=== PATIENT | female | born 1945 | race African-American/Black ===

== ENCOUNTER 2021-11-15 16:27 | Emergency (ER) | payer MEDICARE, SELFPAY ==
--- NOTE | ~2021-11-15 | CT_ITS ---
EXAMINATION: CT cervical spine wo con DATE: 11/15/2021 18:37 INDICATION: trauma TECHNIQUE: Computed tomography (CT) of the cervical spine was performed with intravenous contrast. Au tomated exposure control and iterative reconstruction technique were employed. The dose-length produc t was 127.95 mGy-cm. COMPARISON: None FINDINGS: Vertebral Body Alignment: Intact. Craniocervical and atlantoaxial alignment: Mild degenerative change. Alignment intact. Osseous structures/fracture: No evidence of a lytic or blastic process in the visualized spine. No e vidence of acute fracture. Cervical soft tissues: The paraspinal soft tissues planes are maintained. Degenerative changes: No significant degenerative changes. IMPRESSION: No acute fracture or traumatic malalignment in the cervical spine. Reviewed, dictated and finalized at location K.
--- NOTE | ~2021-11-15 | CT_ITS ---
EXAMINATION: CT brain wo con DATE: 11/15/2021 18:37 INDICATION: trauma . TECHNIQUE: Computed tomography (CT) of the head was performed without intravenous contrast. The mA wa s adjusted according to patient size. Iterative reconstruction technique was employed. The dose-lengt h product was 605.33 mGy-cm. COMPARISON: None FINDINGS: No acute intracranial hemorrhage or extra-axial fluid collection. No hydrocephalus, mass, or herniation. No acute ischemic infarct. Unremarkable dural venous sinus attenuation. No acute osseous abnormality. The aerated spaces are clear. IMPRESSION: No acute intracranial process. Reviewed, dictated and finalized at location K.
[2021-11-15 16:36] VITALS: BP 116/63; PULSE 65; RESP 20; TEMP 37.1; O2SAT 100
--- NOTE | 2021-11-15 19:11 | ED.HEATRA ---
HPI - Head Injury General Chief complaint: Head Injury Stated complaint: head trauma Time Seen by Provider: 11/15/21 17:26 History of Present Illness HPI Narrative: Patient is a 76-year-old female who presents the ER for evaluation of head injury. Yesterday she was getting an elevator and the sensing mechanism did not work and it struck her in the head. She saw stars. She did not lose consciousness. She is not on blood thinners. She has had some mild dizziness today that will occasionally blur her vision. Worse with exertion. Related Data Allergies Allergy/AdvReac Type Severity Reaction Status Date / Time morphine AdvReac Unknown Verified 02/13/14 15:00 Contrast Media Allergy Unknown Uncoded 02/13/14 15:00 Review of Systems Eyes: Eyes: Reports change in vision and Denies photophobia Gastrointestinal: Gastrointestinal: Denies abdominal pain, Denies nausea and Denies vomiting Neurologic: Denies confusion, Reports dizziness, Denies syncope, Denies headache(s), Denies focal weakness and Denies numbness PMFSH Past Medical History Medical History (Updated 11/15/21 @ 19:44 by Bernard Felix MD) History of breast cancer Hypercholesterolemia Hypertension Surgical History Surgical History (Updated 11/15/21 @ 19:20 by Bernard Felix MD) History of appendectomy History of hysterectomy Social History Social History (Updated 11/15/21 @ 19:20 by Bernard Felix MD) Smoking status: Never smoker Exam Narrative: GENERAL: Well-appearing, well-nourished, and in no acute distress. HEAD: Normocephalic, atraumatic. EYES: PERRL and EOMI. CHEST: Clear to auscultation. No respiratory distress. HEART: Regular rate and rhythm. Normal peripheral pulses. EXTREMITIES: Normal range of motion. No edema. SKIN: Warm, dry, no rash. NEURO: Alert and oriented x3. PSYCH: Normal mood and affect. Course Course Emergency Course: Patient resting comfortably. No blurry vision at this time. Still can get some dizziness. Does not seem vertiginous and is felt to be related to closed head injury. Discussed brain rest and patient verbalized understanding. Discharge home. Vital Signs Vital signs: Vital Signs Temperature 98.7 F 11/15/21 16:36 Pulse Rate 65 11/15/21 16:36 Respiratory Rate 20 11/15/21 16:36 Blood Pressure 116/63 11/15/21 16:36 Pulse Oximetry 100 11/15/21 16:36 Oxygen Delivery Room Air 11/15/21 16:36 Temperature 98.7 F 11/15/21 16:36 Pulse Rate 65 11/15/21 16:36 Respiratory Rate 20 11/15/21 16:36 Blood Pressure 116/63 11/15/21 16:36 Pulse Oximetry 100 11/15/21 16:36 Oxygen Delivery Room Air 11/15/21 16:36 MDM - Head Injury Imaging Data Radiologist's impression: ITS Impressions Head CT 11/15/21 19:00 IMPRESSION: No acute intracranial process. Cervical Spine CT 11/15/21 19:04 IMPRESSION: No acute fracture or traumatic malalignment in the cervical spine. Discharge Plan Discharge Clinical Impression: Closed head injury Patient Disposition: Home, Self-Care Condition: Stable Instructions: Concussion (ED) Additional Instructions: Return the ER if you have fever over 100.4 ?F, you have chest pain or shortness of breath, you lose consciousness, you have focal numbness or weakness in arm or leg. Take Tylenol or ibuprofen as needed for headache. Follow-up/Referrals: UNKNOWN,DOCTOR [Non-Staff] - 1 Week
--- NOTE | 2021-11-15 19:15 | PC.NURSE ---
Assumed care of pt at this time. Report received from [facility] LUA.
== END 2021-11-15 19:50 | disposition home or self-care (01) ==
PROVIDERS: Emergency Provider Emergency Medicine
DX: S09.90XA Unspecified injury of head, initial encounter (principal); E78.00 Pure hypercholesterolemia, unspecified; I10 Essential (primary) hypertension; Z85.3 Personal history of malignant neoplasm of breast; Z90.710 Acquired absence of both cervix and uterus; W22.8XXA Striking against or struck by other objects, initial encounter
CPT/HCPCS: 70450; 72125; 99284

== ENCOUNTER 2022-04-05 17:44 | Emergency (ER) | payer MEDICARE, SELFPAY ==
[2022-04-05 18:51] VITALS: BP 113/66; PULSE 63; RESP 14; TEMP 36.4; O2SAT 100
[2022-04-05 23:04] LABS: Influenza A QL RT-PCR Negative (Negative); Influenza B QL RT-PCR Negative (Negative); RSV RNA, RT-PCR Negative (Negative); SARS-CoV-2 RNA PCR Negative
--- NOTE | 2022-04-05 23:18 | ED.GENADULT ---
HPI - General Adult General Chief complaint: Skin/Abscess/Foreign Body Stated complaint: lump on right side of chin Time Seen by Provider: 04/05/22 22:11 History of Present Illness HPI narrative: Patient is a 76-year-old female who presents ER with concerns for a bump located under the skin beneath her right jawline. Has noticed it over the last couple days. Tender to touch. Increases and decreases in size. No difficulty breathing or swallowing. No blemishes to the skin or redness of the skin. It is smaller than the size of a pea. Reports chronic sinus congestion but has been blowing her nose more recently. No fevers or chills or sweats. No productive cough. No difficulty swallowing. Related Data Allergies Allergy/AdvReac Type Severity Reaction Status Date / Time morphine AdvReac Unknown Verified 02/13/14 15:00 Contrast Media Allergy Unknown Uncoded 02/13/14 15:00 Review of Systems Review of Systems: All systems reviewed & are unremarkable except as noted in HPI and below Constitutional: Constitutional: Denies chills and Denies fever(s) ENT: Denies dysphagia, Reports nasal congestion and Denies sore throat Cardiovascular: Cardiovascular: Denies chest pain, Denies rapid heart rate and Denies radiating jaw, neck or arm pain Respiratory: Respiratory: Denies cough and Denies dyspnea PMFSH Past Medical History Medical History (Updated 04/05/22 @ 23:41 by Bernard Felix MD) History of breast cancer Hypercholesterolemia Hypertension Surgical History Surgical History (Updated 11/15/21 @ 19:20 by Bernard Felix MD) History of appendectomy History of hysterectomy Social History Social History (Updated 11/15/21 @ 19:20 by Bernard Felix MD) Smoking status: Never smoker Exam Narrative: GENERAL: Well-appearing, well-nourished, and in no acute distress. HEAD: Normocephalic, atraumatic. EYES: PERRL and EOMI. ENT: Mucous membranes moist. No intraoral tenderness or fluctuant abscess. There is a small nodule along the inferior border of the right mandible on the may represent lymphadenopathy. No asymmetry to the face grossly. No facial swelling. TMs normal bilaterally. NECK: Supple. CHEST: Clear to auscultation. No respiratory distress. HEART: Regular rate and rhythm. Normal peripheral pulses. NEURO: Alert and oriented x3. PSYCH: Normal mood and affect. Course Course Emergency Course: Patient resting comfortably. Informed of results. D/c home Vital Signs Vital signs: Vital Signs Temperature 97.5 F L 04/05/22 18:51 Pulse Rate 63 04/05/22 18:51 Respiratory Rate 14 04/05/22 18:51 Blood Pressure 113/66 04/05/22 18:51 Pulse Oximetry 100 04/05/22 18:51 Oxygen Delivery Room Air 04/05/22 18:51 Temperature 97.5 F L 04/05/22 18:51 Pulse Rate 63 04/05/22 18:51 Respiratory Rate 14 04/05/22 18:51 Blood Pressure 113/66 04/05/22 18:51 Pulse Oximetry 100 04/05/22 18:51 Oxygen Delivery Room Air 04/05/22 18:51 Medical Decision Making Vital Signs Vital Signs: Vital Signs Temperature 97.5 F L 04/05/22 18:51 Pulse Rate 63 04/05/22 18:51 Respiratory Rate 14 04/05/22 18:51 Blood Pressure 113/66 04/05/22 18:51 Pulse Oximetry 100 04/05/22 18:51 Oxygen Delivery Room Air 04/05/22 18:51 Temperature 97.5 F L 04/05/22 18:51 Pulse Rate 63 04/05/22 18:51 Respiratory Rate 14 04/05/22 18:51 Blood Pressure 113/66 04/05/22 18:51 Pulse Oximetry 100 04/05/22 18:51 Oxygen Delivery Room Air 04/05/22 18:51 Lab Data Labs: Lab Results 04/05/22 Range/Units 22:22 Influenza A (RT-PCR) Negative (Negative) Influenza B (RT-PCR) Negative (Negative) RSV (RT-PCR) Negative (Negative) SARS-CoV-2 RNA (RT-PCR) Negative Discharge Plan Discharge Clinical Impression: Lymphadenopathy Patient Disposition: Home, Self-Care Condition: Stable Instructions: Lymphadenopathy (ED) Additional Ins
== END 2022-04-06 02:52 | disposition home or self-care (01) ==
PROVIDERS: Emergency Provider Emergency Medicine
DX: R59.1 Generalized enlarged lymph nodes (principal); Z20.822 Contact with and (suspected) exposure to COVID-19; E78.00 Pure hypercholesterolemia, unspecified; I10 Essential (primary) hypertension; Z85.3 Personal history of malignant neoplasm of breast
CPT/HCPCS: 87637; 99283

== ENCOUNTER 2022-08-10 19:54 | Emergency (ER) | payer MEDICARE, SELFPAY ==
[2022-08-10 20:24] VITALS: BP 124/70; PULSE 55; RESP 18; TEMP 36.7; O2SAT 100
== END 2022-08-10 20:30 | disposition left against medical advice (07) ==
DX: R51.9 Headache, unspecified (principal)
CPT/HCPCS: 99199

== ENCOUNTER 2022-08-11 01:40 | Emergency (ER) | payer MEDICARE, SELFPAY ==
--- NOTE | ~2022-08-11 | CT_ITS ---
EXAMINATION: CT brain wo con DATE: 08/11/2022 04:43 INDICATION: Head injury. Headache. TECHNIQUE: Computed tomography (CT) of the head was performed without intravenous contrast. The mA wa s adjusted according to patient size. Iterative reconstruction technique was employed. The dose-lengt h product was 605.33 mGy-cm. COMPARISON: Head CT 11/15/2021 FINDINGS: There is no intracranial hemorrhage, acute infarction, or abnormal intracranial mass lesion . The ventricles are normal in size. There is mild mucosal thickening in the paranasal sinuses. The m astoid air cells are normal. The orbits are normal. IMPRESSION: 1. Normal brain. Reviewed, dictated and finalized at location A. IMPRESSION: 1. Normal brain.
[2022-08-11 01:44] VITALS: BP 145/62; PULSE 69; RESP 14; TEMP 37; O2SAT 98
[2022-08-11 02:34] VITALS: BP 151/93; PULSE 59; RESP 18; TEMP 36.9; O2SAT 100
[2022-08-11 05:20] VITALS: BP 151/79; PULSE 69; RESP 18; TEMP 36.6; O2SAT 99
[2022-08-11 05:24] LABS: Appearance Urine Clear (Clear); Bilirubin Urine Negative (Negative); Blood Urine 2+ (Negative); Color Urine Yellow (Yellow); Glucose Urine UA Negative (Negative); Ketones Urine Negative (Negative); Leukocyte Esterase Ur Negative LEU/UL (Negative); Nitrate Urine Negative (Negative); Protein Urine Negative (Negative); Specific Grav Ur <= 1.005 (1.001-1.035); Urobilinogen Urine 0.2 mg/dL (<2.0)
[2022-08-11 05:25] LABS: Add Urine Microscopic? YES; RBC Urine 0-2 /hpf (0-2); WBC Urine 0-3 /hpf
--- NOTE | 2022-08-14 18:13 | ED.GENADULT ---
HPI - General Adult General Chief complaint: Head Injury Stated complaint: Head injury Time Seen by Provider: 08/11/22 02:04 History of Present Illness HPI narrative: this is a 76-year-old female presenting ED with chief complaint of head injury. Five days previously the patient had trunk of her car come down on the top of her head. She did not lose consciousness, she did not think anything of it at the time. However since then she has had had a headache and a light sensation on top of her head. Patient denies confusion, numbness tingling weakness in any extremity or any other falls. She is not on blood thinners. Patient states she does have frequent UTIs. patient had a tele medicine appointment with a primary care physician was told to come to the hospital immediately. Related Data Allergies Allergy/AdvReac Type Severity Reaction Status Date / Time morphine AdvReac Unknown Verified 02/13/14 15:00 Contrast Media Allergy Unknown Uncoded 02/13/14 15:00 [facility], [facility] Past Medical History Medical History (Updated 08/14/22 @ 18:20 by Kenny Yanez MD) History of breast cancer Hypercholesterolemia Hypertension Surgical History Surgical History (Updated 11/15/21 @ 19:20 by Bernard Felix MD) History of appendectomy History of hysterectomy Social History Social History (Updated 11/15/21 @ 19:20 by Bernard Felix MD) Smoking status: Never smoker Exam Narrative: APPEARANCE: No apparent distress.Patient is well-appearing. Head: atraumatic. no evidence of injury to the patient's scalp EYES: EOMI, NOSE: Atraumatic NECK: Trachea midline RESPIRATORY: No increased rate of breathing Clear to auscultation CARDIOVASCULAR: RRR, no peripheral edema ABDOMINAL: Non-distended, soft nontender no guarding rebound, no CVA tenderness MUSCULOSKELETAl: No obvious deformities NEURO: Alert. Cranial nerves 2-12 grossly intact. Sensation light touch, motor function cerebellar function intact for 4 extremities. Gait exam was normal. SKIN:: Warm, dry. Normal color PSYCHIATRIC: Normal affect Course Vital Signs Vital signs: Vital Signs Temperature 98.6 F 08/11/22 01:44 Pulse Rate 69 08/11/22 01:44 Respiratory Rate 14 08/11/22 01:44 Blood Pressure 145/62 H 08/11/22 01:44 Pulse Oximetry 98 08/11/22 01:44 Temperature 98 F 08/11/22 05:20 Pulse Rate 69 08/11/22 05:20 Respiratory Rate 18 08/11/22 05:20 Blood Pressure 151/79 H 08/11/22 05:20 Pulse Oximetry 99 08/11/22 05:20 Medical Decision Making MDM Narrative Medical decision making narrative: -Presentation: 76-year-old female presents 5 days after hitting the top of her head with a car trunk door. She has had headache and some lightheadedness that which may be due to concussion symptoms. She is concerned she had a had a brain bleed. Additionally she she has frequent UTIs would like us to check her urine. -DDX includes but is not limited to: Concussion, intracranial hemorrhage, UTI -Co-morbidities complicating care: advanced age, frequent UTIs -Social determinants of health: retired, lives alone -External Chart Review: none -Hx from independent Sources: none -Discussion of Management/Consultants: none -Independent interpretation of studies: CT head was negative for acute findings. Urinalysis was not indicative of infection. Dx tests considered but not ordered: CT C-spine, patient has no neck pain, full range of movement, no midline cervical tenderness. -Procedures: None -Interventions: none -Shared decision making / Disposition: patient was relieved to find out that she had not had a brain bleed. At this time she is A&O x4, has a normal gait with no exam findings. She will be discharged home with primary care follow-up. -RX Vital Signs Vital Signs: Vital Signs Temperature 98.6 F 08/11/22 01:44 Pulse Rate 69 08/11/22 01:44 Respiratory Rate 14 08/11/22 01:44 Blood Pressure 14
== END 2022-08-11 05:21 | disposition home or self-care (01) ==
PROVIDERS: Emergency Provider Emergency Medicine
DX: S09.90XA Unspecified injury of head, initial encounter (principal); I10 Essential (primary) hypertension; E78.00 Pure hypercholesterolemia, unspecified; Z85.3 Personal history of malignant neoplasm of breast; W20.8XXA Other cause of strike by thrown, projected or falling object, initial encounter
CPT/HCPCS: 70450; 81001; 99284

== ENCOUNTER 2025-02-17 05:45 | Emergency (ER) | payer MEDICARE, SELFPAY ==
[2025-02-17 05:55] VITALS: BP 155/72; O2SAT 100
[2025-02-17 05:56] VITALS: BP 155/72; PULSE 52; RESP 16; TEMP 37; O2SAT 100
[2025-02-17 06:01] VITALS: BP 145/75; O2SAT 100
[2025-02-17 06:15] VITALS: BP 151/84; O2SAT 100
[2025-02-17 06:21] LABS: Hematocrit 38.2 % (37.0-47.0); Hemoglobin 11.1 g/dL (12.0-15.0); Immature Granulocyte Percent A 0.3 % (0-0.5); Lymphocytes Absolute Auto 3.76 K/mm3 (0.9-3.2); Mean Corpuscular HGB Conc 29.1 g/dl (32-36); Mean Corpuscular Hemoglobin 24.9 pg (26-34); Mean Corpuscular Volume 85.8 fl (80-100); Nucleated Red Blood Cells Absolute Auto 0.000 K/mm3 (0.0-0.012); Nucleated Red Blood Cells Perc 0.0 % (0.0-0.2); Platelet Count Result 171 k/mm3 (150-375); Red Blood Count 4.45 M/mm3 (4.2-5.4); White Blood Count 7.5 K/mm3 (4.5-10.0)
--- NOTE | 2025-02-17 06:23 | ED.RECABL ---
HPI - Recheck/Abnormal Lab/Rx General Chief Complaint: Dizziness Stated Complaint: dehydration Time Seen by Provider: 02/17/25 06:20 History of Present Illness HPI narrative: 79-year-old female with history of CKD stage 3, hypertension, previous breast cancer. Patient presents to the emergency department today with concerns of dehydration. She has been doing with chronic diarrhea for many months and been taking Linzess for this. She states that she occasionally gets dehydrated to the point that she needs fluid replenishment. She spoke to her dental tech over the phone over the weekend and was told to go the urgent care or ER for labs and possible fluids. She went to urgent care and they were unable to get an IV or blood work so she came to the ER today. Her last set of labs at the end of December shows a creatinine 1.15 and a BUN of 17 with normal electrolytes. Patient endorses feeling dehydrated and weak but no other complaints. Has had previous symptoms of this and gotten fluids in the ER before but her healthcare is usually in the [facility] system. Related Data Allergies Allergy/AdvReac Type Severity Reaction Status Date / Time iohexol (From contrast - CT, Allergy Severe Swelling Verified 02/17/25 05:46 X-RAY) morphine AdvReac Severe Swelling Verified 02/17/25 05:46 Review of Systems Review of Systems: As reviewed [facility] Past Medical History Medical History History of breast cancer Hypercholesterolemia Hypertension Surgical History Surgical History History of hysterectomy History of appendectomy Social History Social History Smoking status: Never smoker Exam Narrative: GENERAL: [Well-appearing, well-nourished, and in no acute distress.] HEAD: [Normocephalic, atraumatic.] EYES: [PERRLA and EOMI.] ENT: Nares clear, no rhinorrhea or epistaxis. Mucous membranes moist. NECK: Supple. CHEST: [Clear to auscultation. No respiratory distress.] HEART: [Regular rate and rhythm]. No murmur heard. [Normal peripheral pulses.] ABDOMEN: Soft and nontender and nondistended abdomen. No rigidity guarding or peritonitis EXTREMITIES: Normal range of motion. [No edema.] SKIN: Warm, dry, no rash. NEURO: [No focal deficits]. Alert and oriented [x3.] PSYCH: [Normal mood and affect.] Course Vital Signs Vital signs: Vital Signs Blood Pressure 155/72 H 02/17/25 05:55 Pulse Oximetry 100 02/17/25 05:55 Temperature 37.0 C 02/17/25 05:56 Pulse Rate 52 L 02/17/25 05:56 Respiratory Rate 16 02/17/25 05:56 Blood Pressure 151/84 H 02/17/25 06:15 Pulse Oximetry 100 02/17/25 06:15 Oxygen Delivery Room Air 02/17/25 05:56 MDM - Recheck/Abnormal Lab/Rx MDM Narrative Medical decision making narrative: 79-year-old female with history of CKD stage 3, hypertension, previous breast cancer. Patient presents to the emergency department today with concerns of dehydration. She has been doing with chronic diarrhea for many months and been taking Linzess for this. She states that she occasionally gets dehydrated to the point that she needs fluid replenishment. She spoke to her dental tech over the phone over the weekend and was told to go the urgent care or ER for labs and possible fluids. She went to urgent care and they were unable to get an IV or blood work so she came to the ER today. Her last set of labs at the end of December shows a creatinine 1.15 and a BUN of 17 with normal electrolytes. Patient endorses feeling dehydrated and weak but no other complaints. Has had previous symptoms of this and gotten fluids in the ER before but her healthcare is usually in the [facility] system. Patient is overall very well-appearing with a soft nontender nondistended abdomen, moist mucous membranes. No tachycardia, fever or hypoxemia. Mildly elevated chronic blood pressure. Will obtain basic laboratory studies in urine to assess for dehydration she was given fluid bolus here. Likely safe for discharge after completion of treatment as she really has close follow-up with her team at [facility]. No leukocytosis or significant anemia worse than her baseline. Normal platelet count. Electrolytes are all normal and her creatinine and BUN are better than her previous labs. Glucose normal. Relayed this information to the patient and she felt much better with that knowledge. She completed her fluids and was safe for discharge with PCP follow-up and return precautions. Medical Records Attestation: I reviewed the patient's medical records. Lab Data Attestation: I reviewed the patient's lab results. 02/17/25 06:12 02/17/25 06:12 Labs: Lab Results 02/17/25 Range/Units 06:12 WBC 7.5 (4.5-10.0) K/mm3 RBC 4.45 (4.2-5.4) M/mm3 Hgb 11.1 L (12.0-15.0) g/dL Hct 38.2 (37.0-47.0) % MCV 85.8 (80-100) fl MCH 24.9 L (26-34) pg MCHC 29.1 L (32-36) g/dl RDW 12.8 (11.5-14.5) % Plt Count 171 (150-375) k/mm3 MPV 11.5 H (7.4-10.4) fl Immature Gran % (Auto) 0.3 (0-0.5) % Neut % (Auto) 39.1 L (45.5-73.1) % Lymph % (Auto) 49.9 H (18.3-44.2) % [place] % (Auto) 8.1 (2.6-8.5) % Eos % (Auto) 1.7 (0-4.4) % Baso % (Auto) 0.9 (0.2-1.2) % Lymph # (Auto) 3.76 H (0.9-3.2) K/mm3 [place] # (Auto) 0.6 (0.1-0.6) K/mm3 Eos # (Auto) 0.1 (0-0.3) K/mm3 Baso # (Auto) 0.1 (0.0-0.1) K/mm3 Abs Immat Gran (auto) 0.02 (0.00-0.031) K/mm3 Absolute Neuts (auto) 3.0 (1.3-6.7) K/mm3 Absolute Nucleated RBC 0.000 (0.0-0.012) K/mm3 Band Neutrophils % Pending Nucleated RBC % 0.0 (0.0-0.2) % Platelet Estimate Pending Schistocytes Pending Sodium 141 (137-145) mmol/L Potassium 4.1 (3.4-5.0) mmol/L Chloride 106 (98-107) mmol/L Carbon Dioxide 30 (22-30) mmol/L Anion Gap 5 (4-12) mmol/L BUN 13 (7-17) mg/dL Creatinine 1.02 H (0.7-1.0) mg/dL Estim Creat Clear Calc Not Reportable Estimated GFR 52 L (59 - ) Glucose 102 (65-110) mg/dL Calcium 9.0 (8.4-10.2) mg/dL Discharge Plan Discharge Clinical Impression: Chronic diarrhea Patient Disposition: Home Condition: Stable Instructions: Antibiotic Form Additional Instructions: Follow-up with your primary care provider and specialist. Return with any emergent concerns. Patient Language: [place]ill[place] Follow-up/Referrals: PHYSICIAN NOT ON STAFF,NONSTAFF [Non-Staff] Time of Disposition: 06:53
[2025-02-17] MEDS: LACTATED RINGERS 1,000 ML 999 ML IV CONT (06:27)
[2025-02-17 06:33] LABS: Anion Gap 5 mmol/L (4-12); Blood Urea Nitrogen 13 mg/dL (7-17); Calcium 9.0 mg/dL (8.4-10.2); Carbon Dioxide 30 mmol/L (22-30); Chloride 106 mmol/L (98-107); Estimated Glomerular Filt Rate 52; Glucose 102 mg/dL (65-110); Potassium 4.1 mmol/L (3.4-5.0); Sodium 141 mmol/L (137-145)
[2025-02-17 06:51] LABS: Polychromasia Occasional
[2025-02-17 06:52] LABS: Crenated RBC 1+; Ovalocytes Occasional; Schistocytes Rare
[2025-02-17 07:35] VITALS: BP 149/90; PULSE 50; RESP 15; O2SAT 100
[2025-02-17 07:51] VITALS: BP 149/90; PULSE 51; RESP 15; O2SAT 100
== END 2025-02-17 07:53 | disposition home or self-care (01) ==
PROVIDERS: Emergency Provider Student in an Organized Health Care Education/Training Program; PCP Family Medicine
DX: Z85.3 Personal history of malignant neoplasm of breast (principal); I12.9 Hypertensive chronic kidney disease with stage 1 through stage 4 chronic kidney disease, or unspecified chronic kidney disease; N18.30 Chronic kidney disease, stage 3 unspecified; R19.7 Diarrhea, unspecified
CPT/HCPCS: 36415; 80048; 85025; 96360; 99283; J7120